=== PATIENT | female | born 1955 | race Caucasian/White ===

== ENCOUNTER 2023-02-10 14:52 | Inpatient (IN) | payer MEDICARE, MEDICAID, SELFPAY ==
[2023-02-10] VITALS (14 sets, daily range): BP systolic 138–163; BP diastolic 76–92; PULSE 83–128; RESP 18–32; TEMP 36.7–37.6; O2SAT 5–98; BMI 41.6; BMI 40.9
--- NOTE | 2023-02-10 15:00 | XR_ITS ---
The [address] [address] Patient Name: CELIA DALE MRN: [id number] date: 1955 Sex: F Assigned Patient Location: ER Current Patient Location: ER Accession/Order Number: [id number] Exam Date: 02/10/2023 15:38 Report Date: 02/10/2023 16:01 At the request of: JESSICA HUITRON Procedure: XR chest 1V EXAM: XR chest 1V TECHNIQUE: Single AP view chest HISTORY: Shortness of breath COMPARISON: None. FINDINGS: The heart is enlarged. There is pulmonary venous congestion. Diffuse increased interstitial markings. Osseous structures are intact. XR/XR chest 1V IMPRESSION: Findings suggest CHF and/or fluid overload. Electronically authenticated by: ALPESH CARBALLO Date: 02/10/2023 16:01
--- NOTE | 2023-02-10 15:01 | ECG_ITS ---
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
--- NOTE | 2023-02-10 15:03 | ED.GENADUL1 ---
HPI - General Adult General Chief complaint: Shortness of Breath/Dyspnea Stated complaint: GENERAL WEAKNESS Time Seen by Provider: 02/10/23 15:00 History of Present Illness HPI narrative: patient is a 67-year-old female who presents to the emergency department by ambulance from her home in [place] where she is a resident for the evaluation of shortness of breath and hypoxia. She was discharged from the hospital yesterday, she was not admitted at this facility. She is noted to be hypoxic on a nasal cannula on arrival. She does not complain of chest pain. EMS reported fever, DuoNeb was given with Solu-Medrol IV. She denies vomiting, peripheral edema. She has a history of chronic obstructive pulmonary disease. per the pharmacy list, patient filled albuterol, doxycycline and a prednisone taper yesterday. Related Data Home Medications Medication Instructions Recorded Confirmed albuterol sulfate 90 mcg/actuation 2 puff inhalation Q6H PRN 02/10/23 02/10/23 aerosol inhaler shortness of breath or wheezing amlodipine 5 mg tablet 5 mg PO .QD 02/10/23 02/10/23 atorvastatin 40 mg tablet 40 mg PO QPM 02/10/23 02/10/23 benzonatate 100 mg capsule 100 mg PO TID PRN cough 02/10/23 02/10/23 bupropion HCl 150 mg tablet,12 hr 150 mg PO Q12H 02/10/23 02/10/23 sustained-release carvedilol 25 mg tablet 25 mg PO Q12H 02/10/23 02/10/23 furosemide 20 mg tablet 20 mg PO .QD 02/10/23 02/10/23 pantoprazole 40 mg tablet,delayed 40 mg PO .ACB 02/10/23 02/10/23 release prednisone 10 mg tablet 10 mg PO .TAPER 02/10/23 02/10/23 Allergies Allergy/AdvReac Type Severity Reaction Status Date / Time morphine AdvReac Severe Vomiting Verified 02/10/23 15:09 Review of Systems ROS Constitutional Reports: fever; Denies: chills Ears, nose, mouth, and throat Denies: throat pain Cardiovascular Denies: chest pain Respiratory Reports: shortness of breath, cough and wheezing Gastrointestinal Denies: nausea or vomiting Genitourinary Denies: painful urination Musculoskeletal Denies: back pain Integumentary/Breast Denies: rash Endocrine Denies: excessive urination Hematologic/Lymphatic Denies: easy bruising PFSH PFSH Social History Smoking status: Former smoker Exam Narrative Exam Narrative: Gen.: Awake, alert, in no distress Head: Normocephalic, atraumatic ENT: Moist mucous membranes Respiratory: hypoxic, tachypnea noted, diffuse wheezing Cardio: Regular rate and rhythm Gastrointestinal: Abdomen is soft, nondistended and nontender to palpation Extremities: Moves extremities equally Psych: Normal mood and affect Neuro: No focal neuro deficit Skin: Warm, dry, intact Constitutional Vital Signs, click to edit/add: Last Vital Signs Temp 99.7 F 02/10/23 17:36 Pulse 100 H 02/10/23 17:49 Resp 18 02/10/23 17:36 BP 160/86 H 02/10/23 17:36 Pulse Ox 96 02/10/23 17:36 O2 Del Method Vapotherm 02/10/23 17:36 O2 Flow Rate 5 02/10/23 15:10 Course Vital Signs Vital signs: Vital Signs Pulse Rate 127 H 02/10/23 15:02 Respiratory Rate 29 H 02/10/23 15:02 Pulse Oximetry 85 L 02/10/23 15:02 Temperature 99.7 F 02/10/23 17:36 Pulse Rate 100 H 02/10/23 17:49 Respiratory Rate 18 02/10/23 17:36 Blood Pressure 160/86 H 02/10/23 17:36 Pulse Oximetry 96 02/10/23 17:36 Oxygen Delivery Method Vapotherm 02/10/23 17:36 Oxygen Delivery Flow Rate 5 02/10/23 15:10 Medical Decision Making MDM Narrative Medical decision making narrative: fluids were discontinued on this patient as she had an elevated BNP. She does have acute kidney injury, leukocytosis with bandemia. Chest x-ray does not show an infiltrate but does show congestive heart failure. Troponin is mildly elevated, likely a combination of acute kidney injury and elevated BNP. Patient will be treated for possible hospital-acquired infection with Zosyn and vancomycin, blood cultures are pending. She meets Sirs criteria with no source of infection at this time. Vapotherm was placed on arrival to the Emergency Room as the patient continued to be hypoxic on a nasal cannula she had improvement with Vapotherm. Tachycardia has improved some. Patient admitted to the hospitalist for further evaluation and treatment. Dr. Dunaway was made aware of the elevated troponin, patient has no EKG changes, no complaints of chest pain in the emergency department. He will order Bumex drip for diuresis. Sarah catheter was placed. Patient is improved, stable at time of admission. Medical Records Medical records reviewed: Yes I reviewed the patient's medical records Lab Data Lab results reviewed: Yes I reviewed the patient's lab results Labs: Lab Results 02/10/23 02/10/23 02/10/23 Range/Units 15:20 16:20 16:42 WBC 18.3 H (4.0-11.0) 10^3/uL RBC 3.59 L (4.20-5.40) 10^6/uL Hgb 12.1 (12.0-16.0) g/dL Hct 36.5 (36.0-48.0) % MCV 101.7 H (81.0-99.0) fL MCH 33.7 (26.7-34.0) pg MCHC 33.2 (29.9-35.2) g/dL RDW 12.8 (11.0-15.0) % Plt Count 277 (150-450) 10^3/uL MPV 9.6 (9.5-13.5) fL Seg Neuts % (Manual) 87.0 Band Neutrophils % 6.0 H (0-5) % Lymphocytes % (Manual) 2.0 L (20.5-60.0) % Monocytes % (Manual) 5.0 (1.7-12.0) % Eosinophils % (Manual) 0.0 L (0.9-7.0) % Basophils % (Manual) 0.0 L (0.2-2.0) % Neutrophils # (Manual) 15.92 H (1.4-6.5) 10^3/uL Band Neutrophils # 1.1 H (0.0-0.3) 10^3/uL Lymphocytes # (Manual) 0.36 L (1.20-3.80) 10^3/uL Monocytes # (Manual) 0.91 H (0.30-0.80) 10^3/uL Eosinophils # (Manual) 0.00 (0.00-0.70) 10^3/uL Basophils # (Manual) 0.00 (0.00-0.10) 10^3/uL PT 10.3 (9.0-11.6) sec INR 0.97 APTT 25.4 (22.3-36.2) sec VBG pH 7.348 (7.330-7.430) VBG pCO2 43.3 (40.0-52.0) mmHg Sodium 139 (136-145) mmol/L Potassium 3.7 (3.5-5.1) mmol/L Chloride 103 (98-107) mmol/L Carbon Dioxide 24.8 (21.0-32.0) mmol/L Anion Gap 14.9 BUN 36.0 H (7.0-18.0) mg/dL Creatinine 2.14 H (0.55-1.02) mg/dL Est GFR ( Amer) 28 L (>=60) Est GFR (Non-Af Amer) 23 L (>=60) BUN/Creatinine Ratio 16.8 Glucose 93 (74-106) mg/dL Lactate 1.4 (0.4-2.0) mmol/L Calcium 9.2 (8.5-10.1) mg/dL Total Bilirubin 0.4 (0.2-1.0) mg/dL AST 46 H (15-37) U/L ALT 33 (14-59) U/L Alkaline Phosphatase 71 (46-116) U/L Troponin I High Sens 71.7 H* (4.0-51.3) pg/mL NT-Pro-B Natriuret Pep 3405.0 H* (<=900.0) pg/mL Total Protein 7.2 (6.4-8.2) g/dL Albumin 2.9 L (3.4-5.0) g/dL Globulin 4.3 g/dL Albumin/Globulin Ratio 0.7 Urine Color Lt. yellow (YELLOW) Urine Clarity Clear (CLEAR) Urine pH 6.0 (5.0-9.0) Ur Specific [place] 1.010 (1.005-1.025) Urine Protein 100 A (NEG/TRACE) mg/dL Urine Glucose (UA) Negative (NEGATIVE) mg/dL Urine Ketones Negative (NEGATIVE) mg/dL Urine Occult Blood Trace-i (NEGATIVE) Urine Nitrite Negative (NEGATIVE) Urine Bilirubin Negative (NEGATIVE) Urine Urobilinogen 0.2 (0.2-1.0) EU/dL Ur Leukocyte Esterase Negative (NEGATIVE) Urine RBC 0-2 (0-2) #/HPF Urine WBC 0-2 A (NONE SEEN) #/HPF Ur Squamous Epith Cells Rare (NONE/RARE) #/LPF Urine Crystals Seen A (None Seen) #/HPF Amorphous Sediment Rare Urine Bacteria None seen (NONE SEEN) #/HPF Urine Casts None seen (NONE SEEN) #/LPF Urine Mucus None seen (NONE SEEN) Ur Culture Indicated? No SARS-CoV-2 (PCR) Positive A (NEGATIVE) Imaging Data Chest x-ray: Attestation: I have reviewed the pertinent imaging results. Radiologist's impression: Procedure: XR chest 1V EXAM: XR chest 1V TECHNIQUE: Single AP view chest HISTORY: Shortness of breath COMPARISON: None. FINDINGS: The heart is enlarged. There is pulmonary venous congestion. Diffuse increased interstitial markings. Osseous structures are intact. IMPRESSION: Findings suggest CHF and/or fluid overload. Electronically authenticated by: ALPESH CARBALLO Date: 02/10/2023 16:01 ECG Data Attestation: I personally reviewed and interpreted this ECG as follows: (sinus tachycardia at a rate of 126, artifact noted with no obvious acute ST elevation or ectopy. EKG reviewed by attending physician) Discharge Plan Discharge Chief Complaint: Shortness of Breath/Dyspnea Clinical Impression: Shortness of breath, Congestive heart failure, Leukocytosis, SIRS (systemic inflammatory response syndrome) Patient Disposition: Admitted As Inpatient Time of Disposition Decision: 16:22 Condition: Fair Discharge Date/Time: 02/10/23 17:25
--- NOTE | 2023-02-10 15:18 | PC.NURSE ---
Pulse ox. 77% on room air, oxygen applied at 3/LPM and pulse ox. up to 83%, oxygen increased to 5 LPM and pulse ox. up to 88%. RT in room at this time initiating vapotherm
[2023-02-10] MEDS: ALBUTEROL SULFATE 2.5 MG/3 ML VIAL NEB IH (15:19)
--- NOTE | 2023-02-10 15:21 | RESP.RT ---
Placed on Vapotherm 40L/55%
--- NOTE | 2023-02-10 15:22 | RESP.RT ---
Placed on Vapotherm 40L/55%
[2023-02-10] MEDS: 0.9 % SODIUM CHLORIDE 1,000 ML 1000 ML IV (15:30)
[2023-02-10 15:36] LABS: PCO2 VBG 43.3 mmHg (40.0-52.0); pH VBG 7.348 (7.330-7.430)
[2023-02-10 15:38] LABS: Hematocrit 36.5 % (36.0-48.0); Hemoglobin 12.1 g/dL (12.0-16.0); Mean Corpuscular HGB Conc 33.2 g/dL (29.9-35.2); Mean Corpuscular Hemoglobin 33.7 pg (26.7-34.0); Mean Corpuscular Volume 101.7 fL (81.0-99.0); Mean Platelet Volume 9.6 fL (9.5-13.5); Platelet Count 277 10^3/uL (150-450); Red Blood Count 3.59 10^6/uL (4.20-5.40); Red Cell Distribution Width 12.8 % (11.0-15.0); White Blood Count 18.3 10^3/uL (4.0-11.0)
[2023-02-10 15:50] LABS: Alanine Aminotransferase 33 U/L (14-59); Albumin Globulin Ratio 0.7; Albumin Level 2.9 g/dL (3.4-5.0); Alkaline Phosphatase 71 U/L (46-116); Anion Gap 14.9; Aspartate Amino Transferase 46 U/L (15-37); BUN Creatinine Ratio 16.8; Bilirubin Total 0.4 mg/dL (0.2-1.0); Calcium 9.2 mg/dL (8.5-10.1); Carbon Dioxide 24.8 mmol/L (21.0-32.0); Chloride 103 mmol/L (98-107); Estimated GFR (African America 28 (>=60); Estimated GFR (Non-African Ame 23 (>=60); Globulin 4.3 g/dL; Glucose 93 mg/dL (74-106); Potassium 3.7 mmol/L (3.5-5.1); Sodium 139 mmol/L (136-145); Total Protein 7.2 g/dL (6.4-8.2)
[2023-02-10 15:59] LABS: INR 0.97; Partial Thromboplastin Time 25.4 sec (22.3-36.2); Prothrombin Time 10.3 sec (9.0-11.6)
[2023-02-10 16:04] LABS: Troponin I High Sensitivity 71.7 pg/mL (4.0-51.3)
[2023-02-10 16:05] LABS: Band Neutrophils Absolute 1.1 10^3/uL (0.0-0.3); Lymphocytes Absolute Manual 0.36 10^3/uL (1.20-3.80); Monocytes Absolute Manual 0.91 10^3/uL (0.30-0.80); Segmented Neut Absolute Manual 15.92 10^3/uL (1.4-6.5)
[2023-02-10 16:31] LABS: Bilirubin Urine NEGATIVE (NEGATIVE); Blood Urine TRACE-I (NEGATIVE); Clarity Urine CLEAR (CLEAR); Color Urine LT. YELLOW (YELLOW); Glucose Urine UA NEGATIVE (NEGATIVE); Ketones Urine NEGATIVE (NEGATIVE); Leukocyte Esterase Urine NEGATIVE (NEGATIVE); Nitrite Urine NEGATIVE (NEGATIVE); Protein Urine 100 mg/dL (NEG/TRACE); Urobilinogen Urine 0.2 EU/dL (0.2-1.0)
[2023-02-10 16:34] LABS: Urine Microscopic Indicated YES
[2023-02-10] MEDS: PIPERACILLIN SODIUM/TAZOBACTAM 4.5 GM in 0.9 % SODIUM CHLORIDE 50 ML IV (16:35)
[2023-02-10 16:38] LABS: Amorphous Sediment Urine RARE; Bacteria Urine NONE SEEN #/HPF (NONE SEEN); Cast Seen? NONE SEEN #/LPF (NONE SEEN); Crystals Seen? Seen #/HPF (None Seen); Mucus Urine NONE SEEN (NONE SEEN); RBC Urine 0-2 #/HPF (0-2); Squamous Epithelial Cell Urine RARE #/LPF (NONE/RARE); Urine Culture Indicated NO; WBC Urine 0-2 #/HPF (NONE SEEN)
[2023-02-10 16:59] LABS: SARS-CoV-2 Ag POSITIVE (NEGATIVE)
[2023-02-10 17:17] LABS: Lactate/Lactic Acid 1.4 mmol/L (0.4-2.0)
[2023-02-10 18:39] LABS: Troponin I High Sensitivity 91.8 pg/mL (4.0-51.3)
[2023-02-10 18:42] LABS: Magnesium 1.8 mg/dL (1.8-2.4); Thyroid Stimulating Hormone 0.066 uIU/mL (0.358-3.740)
[2023-02-10 21:30] LABS: Troponin I High Sensitivity 89.5 pg/mL (4.0-51.3)
[2023-02-10] MEDS: REMDESIVIR 200 MG in 0.9 % SODIUM CHLORIDE 250 ML 250 MG IV (21:42)
[2023-02-10] MEDS: CETIRIZINE HCL 10 MG TABLET 20 MG PO (21:43)
[2023-02-10] MEDS: DEXAMETHASONE SOD PHOS 20 MG/5 ML VIAL 4 MG IV (21:44)
[2023-02-10] MEDS: CARVEDILOL 25 MG TABLET PO (21:44)
[2023-02-10] MEDS: BUPROPION HCL 150 MG SR TABLET 12H PO (21:44)
[2023-02-10] MEDS: BENZONATATE 100 MG CAPSULE 200 MG PO (21:44)
--- NOTE | 2023-02-10 22:44 | P.HP_ITS ---
H&P: HPI History of Present Illness Chief complaint: GENERAL WEAKNESS, CHF, Shortness of Breath, SIRS Narrative: Patient tolerated discharged from an outside facility for pneumonia. Presented to the emergency room. Here found to have acute combined congestive heart failure, COVID-19 was tested and she did test positive. Patient was transferred to medical surgical unit for definitive care Review of Systems ROS Status of ROS 10 or more systems reviewed and unremarkable except as noted in history and below Constitutional Denies: fever or chills Cardiovascular Reports: chest pain Respiratory Reports: shortness of breath and cough Gastrointestinal Reports: nausea PFSH PFSH Medical History (Updated 02/10/23 @ 18:50 by Jamee Bro RN) Chronic kidney disease, stage 4 (severe) ?N18.4 - Chronic kidney disease, stage 4 (severe) (ICD-10) COPD (chronic obstructive pulmonary disease) ?J44.9 - Chronic obstructive pulmonary disease, unspecified (ICD-10) Hypercholesteremia ?E78.00 - Pure hypercholesterolemia, unspecified (ICD-10) Hypertension ?I10 - Essential (primary) hypertension (ICD-10) Mantle cell lymphoma ?C83.10 - Mantle cell lymphoma, unspecified site (ICD-10) Social History Smoking status: Former smoker Meds Home Medications and Allergies Home Medications Medication Instructions Recorded Confirmed Type albuterol sulfate 90 mcg/actuation 2 puff inhalation Q6H PRN 02/10/23 02/10/23 History aerosol inhaler shortness of breath or wheezing amlodipine 5 mg tablet 5 mg PO .QD 02/10/23 02/10/23 History atorvastatin 40 mg tablet 40 mg PO QPM 02/10/23 02/10/23 History benzonatate 100 mg capsule 100 mg PO TID PRN cough 02/10/23 02/10/23 History bupropion HCl 150 mg tablet,12 hr 150 mg PO Q12H 02/10/23 02/10/23 History sustained-release carvedilol 25 mg tablet 25 mg PO Q12H 02/10/23 02/10/23 History furosemide 20 mg tablet 20 mg PO .QD 02/10/23 02/10/23 History pantoprazole 40 mg tablet,delayed 40 mg PO .ACB 02/10/23 02/10/23 History release prednisone 10 mg tablet 10 mg PO .TAPER 02/10/23 02/10/23 History Allergies Allergy/AdvReac Type Severity Reaction Status Date / Time morphine AdvReac Severe Vomiting Verified 02/10/23 15:09 Exam Constitutional Vital Signs, click to edit/add: Last Vital Signs Temp 98.0 F 02/10/23 22:32 Pulse 90 02/10/23 22:32 Resp 20 02/10/23 22:32 BP 139/76 02/10/23 22:32 Pulse Ox 95 02/10/23 22:32 O2 Del Method High Flow Nasal Cannula 02/10/23 22:32 O2 Flow Rate 40 02/10/23 22:32 FiO2 55 02/10/23 22:32 Documenting provider has reviewed patient's vital signs: yes Common normals: apparent distress HENMT Common normals: normocephalic Chest Common normals: inspection of chest normal Respiratory Common normals: no retractions and no use of accessory muscles; abnormal respiratory effort Effort & inspection: not able to speak in complete sentences Auscultation: rales and rhonchi Cardio Common normals: regular rate, regular rhythm and no murmurs GI Common normals: negative for Normal to inspection, nondistended, normoactive bowel sounds present (Obese) Results Labs Labs: Short CBC 02/10/23 Range/Units 15:20 WBC 18.3 H (4.0-11.0) 10^3/uL Hgb 12.1 (12.0-16.0) g/dL Hct 36.5 (36.0-48.0) % Plt Count 277 (150-450) 10^3/uL BMP 02/10/23 15:20 Sodium 139 Potassium 3.7 Chloride 103 Carbon Dioxide 24.8 BUN 36.0 H Creatinine 2.14 H Glucose 93 Calcium 9.2 Liver Function 02/10/23 Range/Units 15:20 Total Bilirubin 0.4 (0.2-1.0) mg/dL AST 46 H (15-37) U/L ALT 33 (14-59) U/L Alkaline Phosphatase 71 (46-116) U/L Albumin 2.9 L (3.4-5.0) g/dL Urine 02/10/23 Range/Units 16:20 Urine Color Lt. yellow (YELLOW) Urine Clarity Clear (CLEAR) Urine pH 6.0 (5.0-9.0) Ur Specific [place] 1.010 (1.005-1.025) Urine Protein 100 A (NEG/TRACE) mg/dL Urine Glucose (UA) Negative (NEGATIVE) mg/dL ABG ABG results: 02/10/23 15:20 VBG pH 7.348 VBG pCO2 43.3 Assessment and Plan Assessment and Plan (1) Shortness of breath: (2) Congestive heart failure: (3) Leukocytosis: (4) SIRS (systemic inflammatory response syndrome): Plan Respiratory distress, tachycardia, leukocytosis-acute hypoxic respiratory failure secondary to acute COVID-19 complicated by acute combined congestive heart failure-patient requiring high flow supplemental oxygen of Vapotherm. Oxygen saturations are improved with that. Tried obtain sputum culture-this is all into sepsis with multisystem organ dysfunction-renal, respiratory, heme, cardiac. Acute [id number] pneumonia bilateral-we will start inpatient treatment with inhalers, steroids, remdesivir. Acute combined congestive heart failure-secondary to complications of COVID-19 with elevated high-sensitivity troponin as well as treatment outside facility for dehydration and pneumonia. Patient not tested for COVID-19 at outside facility. Outside facility will be notified of exposure Depression-continue with home medications GERD-continue with home medications Morbid obesity-diet management
[2023-02-10] MEDS: POTASSIUM CHLORIDE 10 MEQ ER TABLET PO (22:51)
[2023-02-10] MEDS: BUMETANIDE 10 MG in 0.9 % SODIUM CHLORIDE 160 ML 20 MG IV (22:53)
[2023-02-10] MEDS: CLINDAMYCIN PHOSPHATE/D5W 600 MG/50 ML PIGGYBACK 100 MG IV (22:55)
[2023-02-10] MEDS: IPRATROPIUM/ALBUTEROL SULFATE 3 ML AMPUL.NEB IH (23:04)
[2023-02-10] MEDS: PIPERACILLIN SODIUM/TAZOBACTAM 3.375 GM in 0.9 % SODIUM CHLORIDE 50 ML IV (23:27)
[2023-02-11] VITALS (22 sets, daily range): BP systolic 144–158; BP diastolic 75–93; PULSE 67–92; RESP 18–20; TEMP 36.3–36.8; O2SAT 90–96
--- NOTE | 2023-02-11 00:03 | RESP.RT ---
Titrated to 50%
--- NOTE | 2023-02-11 00:05 | RESP.RT ---
Titrated to 50%
[2023-02-11] MEDS: BENZONATATE 100 MG CAPSULE 200 MG PO ×3 (02:12→18:19)
[2023-02-11] MEDS: CLINDAMYCIN PHOSPHATE/D5W 600 MG/50 ML PIGGYBACK 100 MG IV ×4 (02:12→20:03)
[2023-02-11] MEDS: DEXAMETHASONE SOD PHOS 20 MG/5 ML VIAL 4 MG IV ×4 (02:13→20:04)
[2023-02-11] MEDS: IPRATROPIUM/ALBUTEROL SULFATE 3 ML AMPUL.NEB IH ×4 (04:28→20:06)
[2023-02-11 05:15] LABS: Hematocrit 32.4 % (36.0-48.0); Hemoglobin 10.7 g/dL (12.0-16.0); Mean Platelet Volume 9.1 fL (9.5-13.5); Platelet Count 191 10^3/uL (150-450); Red Blood Count 3.24 10^6/uL (4.20-5.40); White Blood Count 11.9 10^3/uL (4.0-11.0)
[2023-02-11 05:49] LABS: Alanine Aminotransferase 29 U/L (14-59); Albumin Globulin Ratio 0.6; Albumin Level 2.4 g/dL (3.4-5.0); Alkaline Phosphatase 59 U/L (46-116); Anion Gap 14.7; Aspartate Amino Transferase 41 U/L (15-37); Bilirubin Total 0.3 mg/dL (0.2-1.0); Calcium 8.4 mg/dL (8.5-10.1); Carbon Dioxide 23.6 mmol/L (21.0-32.0); Chloride 99 mmol/L (98-107); Estimated GFR (African America 28 (>=60); Estimated GFR (Non-African Ame 23 (>=60); Globulin 3.9 g/dL; Glucose 186 mg/dL (74-106); Potassium 3.3 mmol/L (3.5-5.1); Sodium 134 mmol/L (136-145); Total Protein 6.3 g/dL (6.4-8.2)
[2023-02-11 06:01] LABS: Troponin I High Sensitivity 55.4 pg/mL (4.0-51.3)
[2023-02-11] MEDS: OMEPRAZOLE 40 MG CAPSULE.DR PO (06:11)
[2023-02-11] MEDS: POTASSIUM CHLORIDE 10 MEQ ER TABLET PO (06:11)
[2023-02-11] MEDS: PIPERACILLIN SODIUM/TAZOBACTAM 3.375 GM in 0.9 % SODIUM CHLORIDE 50 ML IV ×3 (06:57→22:23)
--- NOTE | 2023-02-11 07:30 | P.PN_ITS ---
Progress Note: Subjective Subjective Interval history: Patient does state her breathing is slightly better than previous day. She had to have good urine output with Bumex drip Exam Constitutional Vital Signs, click to edit/add: Last Vital Signs Temp 98.3 F 02/12/23 08:16 Pulse 76 02/12/23 11:50 Resp 18 02/12/23 08:16 BP 147/91 H 02/12/23 08:16 Pulse Ox 94 L 02/12/23 11:50 O2 Del Method Nasal Cannula 02/12/23 11:18 O2 Flow Rate 4 02/12/23 11:18 FiO2 50 02/11/23 07:26 Documenting provider has reviewed patient's vital signs: yes Common normals: apparent distress HENMT Common normals: normocephalic Chest Common normals: inspection of chest normal Respiratory Common normals: no retractions and no use of accessory muscles; abnormal respiratory effort Effort & inspection: not able to speak in complete sentences Auscultation: rales and rhonchi Cardio Common normals: regular rate, regular rhythm and no murmurs GI Common normals: negative for Normal to inspection, nondistended, normoactive bowel sounds present (Obese) Progress Note: Objective Labs Labs: Short CBC 02/12/23 Range/Units 05:06 WBC 13.5 H (4.0-11.0) 10^3/uL Hgb 12.0 (12.0-16.0) g/dL Hct 35.8 L (36.0-48.0) % Plt Count 220 (150-450) 10^3/uL BMP 02/12/23 05:06 Sodium 135 L Potassium 3.3 L Chloride 96 L Carbon Dioxide 30.3 BUN 55.0 H Creatinine 2.34 H Glucose 121 H Calcium 8.4 L Liver Function 02/12/23 Range/Units 05:06 Total Bilirubin 0.5 (0.2-1.0) mg/dL AST 43 H (15-37) U/L ALT 39 (14-59) U/L Alkaline Phosphatase 68 (46-116) U/L Albumin 2.6 L (3.4-5.0) g/dL Progress Note: A&P Assessment and Plan (1) Shortness of breath: (2) Congestive heart failure: (3) Leukocytosis: (4) SIRS (systemic inflammatory response syndrome): Plan Respiratory distress, tachycardia, uncontrolled htn leukocytosis-acute hypoxic respiratory failure secondary to acute COVID-19 complicated by acute combined congestive heart failure-this is all into sepsis with multisystem organ dysfunction-renal, respiratory, heme, cardiac. -Patient is on vapo therm -we will try to wean to nasal cannula today. O2 saturations 88 to 92% would be fine given COVID-19 pneumonia. Acute OARVT-05-pped pneumonia bilateral-we will start inpatient treatment with inhalers, steroids, remdesivir.-Maintain current medications Acute combined congestive heart failure-secondary to complications of COVID-19 with elevated high-sensitivity troponin as well as treatment outside facility for dehydration and pneumonia. Patient not tested for COVID-19 at outside facility. Outside facility will be notified of exposure-did well with initial Bumex drip. We will repeat that today. - down 3 L today Hyponatremia - due to the above - cont to monitor CKD-3 - stabel eunice herrera drip Hyperglycemia =- monitor Hypokalemia due to the above - supplement Depression-continue with home medications GERD-continue with home medications Morbid obesity-diet management
--- NOTE | 2023-02-11 07:34 | PC.NURSE ---
Patient oxygen saturation on high flow NC 40 L; 50% was mid 90s throughout the night. Patient was switched over to 4 L/min nasal canula per physician's orders. Her oxygen saturation is now 92%. She states she is not short of breath or having any difficulty breathing. She is currently resting in bed with call light in reach.
[2023-02-11 08:36] LABS: Red Cell Distribution Width 12.7 % (11.0-15.0)
--- NOTE | 2023-02-11 09:04 | CM.NOTE ---
Rounds made with Dr. Dunaway, no discharge for pt today. SW and Case Management will follow for discharge needs.
[2023-02-11] MEDS: CETIRIZINE HCL 10 MG TABLET 20 MG PO (09:09)
[2023-02-11] MEDS: AMLODIPINE BESYLATE 5 MG TABLET PO (09:09)
[2023-02-11] MEDS: CARVEDILOL 25 MG TABLET PO ×2 (09:10→20:04)
[2023-02-11] MEDS: BUPROPION HCL 150 MG SR TABLET 12H PO ×2 (09:10→20:03)
[2023-02-11 10:43] LABS: Band Neutrophils Absolute 1.3 10^3/uL (0.0-0.3); Lymphocytes Absolute Manual 0.11 10^3/uL (1.20-3.80); Monocytes Absolute Manual 0.59 10^3/uL (0.30-0.80); Segmented Neut Absolute Manual 9.87 10^3/uL (1.4-6.5)
[2023-02-11] MEDS: POTASSIUM CHLORIDE 10 MEQ ER TABLET 20 MEQ PO ×3 (11:17→20:03)
[2023-02-11] MEDS: BUMETANIDE 10 MG in 0.9 % SODIUM CHLORIDE 160 ML 20 MG IV (11:19)
--- NOTE | 2023-02-11 12:36 | SWNOTE1 ---
SW met with pt to discuss dc needs. Pt lives at home by herself, her daughter lives across the street. Pt does use a cane at home, thinking of getting a rollator as it was recommended by therapy. SW to assist if pt does need. Pt's family assists with meals, grocery shopping, laundry, etc. Pt voices she does fairly well at home on her own, but her legs gave out yesterday at home and she was just weight. FIORDALIZA spoke with her about the possibility of home health or needing a short term rehab stay. SW explained what HH was and also was going to rehab entailed. SW let her know since she is covid positive she would have limited options on who takes covid. As of now it is only [facility]. At this time pt is hopeful to go home with home health versus rehab. FIORDALIZA asked to call family to see if they were in agreement. Pt is alright with SW calling her daughter. FIORDALIZA called and spoke with daughter. SW explained to her what therapy recommendations were and the difference between HH and going to rehab. Pt's daughter stated if she does not progress with therapy, they are open to her going skilled. She would like to see how she does and go from there. At this time pt and family alright with setting up home health. Pt's daughter is on her way here. FIORDALIZA left a home health list from [employer] in room for pt. She will review and SW to call back this afternoon.
--- NOTE | 2023-02-11 13:57 | SWNOTE1 ---
SW called and spoke with daughter and she is waiting for call back from uncle to see what HH company to use.
--- NOTE | 2023-02-11 15:01 | SWNOTE1 ---
SW spoke with daughter and she would like to use [facility] as her grandfather used them. SW sent referral.
--- NOTE | 2023-02-11 15:49 | SWNOTE1 ---
SW called [facility] and they are able to accept. FIORDALIZA left packet for nursing on floor in case of discharge over the weekend.
[2023-02-11] MEDS: REMDESIVIR 100 MG in 0.9 % SODIUM CHLORIDE 100 ML 200 MG IV (18:18)
[2023-02-12] VITALS (21 sets, daily range): BP systolic 126–158; BP diastolic 68–97; PULSE 64–84; RESP 18–20; TEMP 36.4–36.9; O2SAT 89–94
[2023-02-12] MEDS: CLINDAMYCIN PHOSPHATE/D5W 600 MG/50 ML PIGGYBACK 100 MG IV ×4 (00:03→18:41)
[2023-02-12] MEDS: BENZONATATE 100 MG CAPSULE 200 MG PO ×3 (01:04→17:09)
[2023-02-12] MEDS: DEXAMETHASONE SOD PHOS 20 MG/5 ML VIAL 4 MG IV ×4 (01:05→20:36)
[2023-02-12] MEDS: IPRATROPIUM/ALBUTEROL SULFATE 3 ML AMPUL.NEB IH ×4 (04:43→21:30)
[2023-02-12] MEDS: OMEPRAZOLE 40 MG CAPSULE.DR PO (05:03)
[2023-02-12] MEDS: POTASSIUM CHLORIDE 10 MEQ ER TABLET 20 MEQ PO ×4 (05:03→20:35)
[2023-02-12 05:29] LABS: Hematocrit 35.8 % (36.0-48.0); Mean Corpuscular HGB Conc 33.5 g/dL (29.9-35.2); Mean Corpuscular Hemoglobin 33.2 pg (26.7-34.0); Mean Corpuscular Volume 99.2 fL (81.0-99.0); Platelet Count 220 10^3/uL (150-450); Red Blood Count 3.61 10^6/uL (4.20-5.40); Red Cell Distribution Width 12.4 % (11.0-15.0); White Blood Count 13.5 10^3/uL (4.0-11.0)
[2023-02-12 05:58] LABS: Alanine Aminotransferase 39 U/L (14-59); Albumin Globulin Ratio 0.6; Albumin Level 2.6 g/dL (3.4-5.0); Alkaline Phosphatase 68 U/L (46-116); Aspartate Amino Transferase 43 U/L (15-37); BUN Creatinine Ratio 23.5; Bilirubin Total 0.5 mg/dL (0.2-1.0); Calcium 8.4 mg/dL (8.5-10.1); Carbon Dioxide 30.3 mmol/L (21.0-32.0); Chloride 96 mmol/L (98-107); Estimated GFR (African America 25 (>=60); Estimated GFR (Non-African Ame 21 (>=60); Globulin 4.4 g/dL; Glucose 121 mg/dL (74-106); Magnesium 1.7 mg/dL (1.8-2.4); Potassium 3.3 mmol/L (3.5-5.1); Sodium 135 mmol/L (136-145); Troponin I High Sensitivity 26.9 pg/mL (4.0-51.3)
[2023-02-12] MEDS: PIPERACILLIN SODIUM/TAZOBACTAM 3.375 GM in 0.9 % SODIUM CHLORIDE 50 ML IV ×3 (06:08→22:00)
[2023-02-12 06:15] LABS: Lymphocytes Absolute Manual 1.48 10^3/uL (1.20-3.80); Monocytes Absolute Manual 0.81 10^3/uL (0.30-0.80); Myelocytes Absolute Manual 0.13; Segmented Neut Absolute Manual 11.07 10^3/uL (1.4-6.5)
[2023-02-12] MEDS: BUPROPION HCL 150 MG SR TABLET 12H PO ×2 (08:45→20:35)
[2023-02-12] MEDS: CARVEDILOL 25 MG TABLET PO ×3 (08:45→20:35)
[2023-02-12] MEDS: AMLODIPINE BESYLATE 5 MG TABLET PO (08:45)
[2023-02-12] MEDS: CETIRIZINE HCL 10 MG TABLET 20 MG PO (08:45)
--- NOTE | 2023-02-12 11:16 | PT.DAILY ---
Physical Therapy Daily Note PT Daily Note/Assess Start: 02/12/23 11:09 Freq: Status: Active Protocol: Document 02/12/23 10:30 GHADA (Rec: 02/12/23 11:16 GHADA [id number]) Physical Therapy Daily Note/Assessment Time In/Time Out Time In 10:30 Time Out 10:55 Pain In Pain N/A Pain Out Pain N/A Subjective Subjective Reports mild soreness in ribs and thoracic spine due to coughing, but does not rate. Reports feeling better. Up in chair at start of RX. Therapeutic Exercise Time Therapeutic Exercise Minutes (minutes) 10 Therapeutic Exercise Units 1 Therapeutic Exercise Treatment Therapeutic Exercise Treatment Seated exercises with AROM in all planes 10 reps with rest breaks as needed. SPO2 at 88 percent with patient on O2. Therapeutic Activity Time Therapeutic Activity Minutes (minutes) 15 Therapeutic Activity Units 1 Therapeutic Activity Treatment Chair Transfer Ability Minimum Assist Therapeutic Activity Comments Patient just up in chair with nursing. Sit to stand from chair with SC min assist. Patient stands for 1 min with SC with SPO2 at 92 percent. Attempted to take two steps with SC with mod assist due to poor balance from weakness; patient returns to seated position in chair. Sit to stand from chair at RW with CGA/Min assist. Gait 5 ft. fwd ./5 ft. retro with CGA. SPO2 to 84 percent so seated rested break with cues for correct breathing. SPO2 back to 89 percent after 3 min rest. Total Physical Therapy Time Total Therapy Minutes 25 Total Physical Therapy Units 2 Summary Daily Note Summary Patient demonstrate improved ability with transfers and gait this date. 1st attempted gait with SC, but this was unsafe due to weakness and poor balance, so initiated use of RW. Patient demonstrate improved ability with RW vs SC today. SPO2 does decreased after 10 ft. of ambulation but increased with rest break and breathing techniques. Patient was in chair with call light in reach post RX.
--- NOTE | 2023-02-12 12:01 | P.PN_ITS ---
Progress Note: Subjective Subjective Interval history: Patient looks more comfortable with her breathing today. Exam Constitutional Vital Signs, click to edit/add: Last Vital Signs Temp 98.3 F 02/12/23 08:16 Pulse 76 02/12/23 11:50 Resp 18 02/12/23 08:16 BP 147/91 H 02/12/23 08:16 Pulse Ox 94 L 02/12/23 11:50 O2 Del Method Nasal Cannula 02/12/23 11:18 O2 Flow Rate 4 02/12/23 11:18 FiO2 50 02/11/23 07:26 Documenting provider has reviewed patient's vital signs: yes Common normals: apparent distress HENMT Common normals: normocephalic Chest Common normals: inspection of chest normal Respiratory Common normals: normal respiratory effort, no retractions and no use of accessory muscles Effort & inspection: able to speak in complete sentences Auscultation: rales (Improved) and rhonchi (Improved) Cardio Common normals: regular rate, regular rhythm and no murmurs GI Common normals: negative for Normal to inspection, nondistended, normoactive bowel sounds present (Obese) Progress Note: Objective Labs Labs: Short CBC 02/12/23 Range/Units 05:06 WBC 13.5 H (4.0-11.0) 10^3/uL Hgb 12.0 (12.0-16.0) g/dL Hct 35.8 L (36.0-48.0) % Plt Count 220 (150-450) 10^3/uL BMP 02/12/23 05:06 Sodium 135 L Potassium 3.3 L Chloride 96 L Carbon Dioxide 30.3 BUN 55.0 H Creatinine 2.34 H Glucose 121 H Calcium 8.4 L Liver Function 02/12/23 Range/Units 05:06 Total Bilirubin 0.5 (0.2-1.0) mg/dL AST 43 H (15-37) U/L ALT 39 (14-59) U/L Alkaline Phosphatase 68 (46-116) U/L Albumin 2.6 L (3.4-5.0) g/dL Progress Note: A&P Assessment and Plan (1) Congestive heart failure: (2) Leukocytosis: (3) SIRS (systemic inflammatory response syndrome): (4) Shortness of breath: (5) Hypertension: Plan Respiratory distress, tachycardia, Bandemia, uncontrolled htn leukocytosis-acute hypoxic respiratory failure secondary to acute COVID-19 complicated by acute combined congestive heart failure-this is all led to sepsis with multisystem organ dysfunction-renal, respiratory, heme, cardiac. -Patient able to be weaned to nasal cannula oxygen, initially on 5 L and is down to 4 L this morning. Continue with current treatment plan Acute [id number]-cdvi pneumonia bilateral-we will start inpatient treatment with inhalers, steroids, remdesivir.-Maintain current medications-bandemia has resolved today Acute combined congestive heart failure-secondary to complications of COVID-19 with elevated high-sensitivity troponin as well as treatment outside facility for dehydration and pneumonia. -Has had good diuresis from the Bumex drip on 2 occasions. We will change patient to just IV Lasix today.-BNP is improved, HST is improved Hyponatremia - due to the above - cont to monitor-improved CKD-3 -elevated somewhat today. Continue to monitor Hyperglycemia =- monitor Iron deficiency anemia-monitor daily-improved today Hypokalemia due to the above - supplement-stable today but will increase supplementation Acute diarrhea-likely secondary to the above-we will check stool for C. difficile Hypomagnesemia likely secondary to the diuresis-supplement Depression-continue with home medications GERD-continue with home medications Morbid obesity-diet management
[2023-02-12 12:04] LABS: Adenovirus F 40/41 NOT DETECTED (NOT DETECTE); Astrovirus NOT DETECTED (NOT DETECTE); Campylobacter NOT DETECTED (NOT DETECTE); Cryptosporidium NOT DETECTED (NOT DETECTE); Cyclospora cayetanensis NOT DETECTED (NOT DETECTE); Entamoeba histolytica NOT DETECTED (NOT DETECTE); Enteroaggregative E.coli NOT DETECTED (NOT DETECTE); Enteropathogenic E.coli NOT DETECTED (NOT DETECTE); Enterotoxigenic E. coli NOT DETECTED (NOT DETECTE); Giardia lamblia NOT DETECTED (NOT DETECTE); Norovirus GI/GII NOT DETECTED (NOT DETECTE); Plesiomonas shigelloides NOT DETECTED (NOT DETECTE); Rotavirus A NOT DETECTED (NOT DETECTE); Salmonella NOT DETECTED (NOT DETECTE); Sapovirus NOT DETECTED (NOT DETECTE); Shiga-like toxin-producing E.C NOT DETECTED (NOT DETECTE); Shigella/Enteroinvasive E.coli NOT DETECTED (NOT DETECTE); Vibrio NOT DETECTED (NOT DETECTE); Vibrio cholerae NOT DETECTED (NOT DETECTE); Yersinia enterocolitica NOT DETECTED (NOT DETECTE)
[2023-02-12] MEDS: FUROSEMIDE 40 MG/4 ML VIAL IVP (13:22)
[2023-02-12] MEDS: MAGNESIUM OXIDE 400 MG TABLET PO ×2 (13:28→20:35)
[2023-02-12] MEDS: PROSTAT 15 GM PROTEIN/100 CAL 30 ML LIQUID PACKET PO ×2 (13:28→20:35)
[2023-02-12 16:09] LABS: Procalcitonin 2.42 ng/mL (0.00-0.08)
[2023-02-12] MEDS: REMDESIVIR 100 MG in 0.9 % SODIUM CHLORIDE 100 ML 200 MG IV (18:19)
[2023-02-13] VITALS (25 sets, daily range): BP systolic 133–151; BP diastolic 84–93; PULSE 69–96; RESP 16–20; TEMP 36.3–36.4; O2SAT 88–96
[2023-02-13] MEDS: CLINDAMYCIN PHOSPHATE/D5W 600 MG/50 ML PIGGYBACK 100 MG IV ×4 (00:58→18:16)
[2023-02-13] MEDS: BENZONATATE 100 MG CAPSULE 200 MG PO ×3 (01:02→17:02)
[2023-02-13] MEDS: DEXAMETHASONE SOD PHOS 20 MG/5 ML VIAL 4 MG IV ×4 (01:02→20:09)
[2023-02-13] MEDS: IPRATROPIUM/ALBUTEROL SULFATE 3 ML AMPUL.NEB IH ×4 (04:59→21:17)
[2023-02-13] MEDS: CARVEDILOL 25 MG TABLET PO ×3 (05:01→21:32)
[2023-02-13] MEDS: OMEPRAZOLE 40 MG CAPSULE.DR PO (05:02)
[2023-02-13 06:03] LABS: Hematocrit 37.4 % (36.0-48.0); Hemoglobin 12.5 g/dL (12.0-16.0); Mean Corpuscular HGB Conc 33.4 g/dL (29.9-35.2); Mean Corpuscular Hemoglobin 32.9 pg (26.7-34.0); Mean Corpuscular Volume 98.4 fL (81.0-99.0); Platelet Count 206 10^3/uL (150-450); Red Cell Distribution Width 12.6 % (11.0-15.0); White Blood Count 12.1 10^3/uL (4.0-11.0)
[2023-02-13] MEDS: PIPERACILLIN SODIUM/TAZOBACTAM 3.375 GM in 0.9 % SODIUM CHLORIDE 50 ML IV ×3 (06:24→23:19)
[2023-02-13 06:40] LABS: Alanine Aminotransferase 37 U/L (14-59); Albumin Level 2.6 g/dL (3.4-5.0); Alkaline Phosphatase 61 U/L (46-116); Anion Gap 15.6; Aspartate Amino Transferase 30 U/L (15-37); BUN Creatinine Ratio 31.6; Bilirubin Total 0.4 mg/dL (0.2-1.0); Calcium 8.1 mg/dL (8.5-10.1); Carbon Dioxide 26.9 mmol/L (21.0-32.0); Chloride 99 mmol/L (98-107); Estimated GFR (African America 26 (>=60); Estimated GFR (Non-African Ame 22 (>=60); Glucose 109 mg/dL (74-106); Magnesium 1.8 mg/dL (1.8-2.4); Potassium 3.5 mmol/L (3.5-5.1); Sodium 138 mmol/L (136-145); Total Protein 6.6 g/dL (6.4-8.2); Troponin I High Sensitivity 17.5 pg/mL (4.0-51.3)
[2023-02-13 06:50] LABS: Albumin Globulin Ratio 0.7
[2023-02-13 07:45] LABS: Band Neutrophils Absolute 0.2 10^3/uL (0.0-0.3); Monocytes Absolute Manual 0.48 10^3/uL (0.30-0.80); Segmented Neut Absolute Manual 10.76 10^3/uL (1.4-6.5)
[2023-02-13] MEDS: PROSTAT 15 GM PROTEIN/100 CAL 30 ML LIQUID PACKET PO (09:02)
[2023-02-13] MEDS: BUPROPION HCL 150 MG SR TABLET 12H PO ×2 (09:02→21:32)
[2023-02-13] MEDS: POTASSIUM CHLORIDE 10 MEQ ER TABLET 20 MEQ PO ×4 (09:02→21:32)
[2023-02-13] MEDS: MAGNESIUM OXIDE 400 MG TABLET PO ×2 (09:02→21:32)
[2023-02-13] MEDS: AMLODIPINE BESYLATE 5 MG TABLET PO (09:02)
[2023-02-13] MEDS: CETIRIZINE HCL 10 MG TABLET 20 MG PO (10:05)
--- NOTE | 2023-02-13 11:08 | P.PN_ITS ---
Progress Note: Subjective Subjective Interval history: Patient sleeping but awakens easily. Likely her breathing again continues to be better. Exam Constitutional Vital Signs, click to edit/add: Last Vital Signs Temp 97.5 F L 02/13/23 07:54 Pulse 88 02/13/23 09:57 Resp 16 02/13/23 07:55 BP 148/93 H 02/13/23 07:54 Pulse Ox 95 02/13/23 10:35 O2 Del Method Nasal Cannula 02/13/23 10:35 O2 Flow Rate 3 02/13/23 10:35 FiO2 50 02/11/23 07:26 Documenting provider has reviewed patient's vital signs: yes Common normals: apparent distress HENMT Common normals: normocephalic Chest Common normals: inspection of chest normal Respiratory Common normals: normal respiratory effort, no retractions and no use of accessory muscles Effort & inspection: able to speak in complete sentences Auscultation: rhonchi (Continues to improve. Diffuse pattern consistent with COVID 19) Cardio Common normals: regular rate, regular rhythm and no murmurs GI Common normals: negative for Normal to inspection, nondistended, normoactive bowel sounds present (Obese) Extremity General: no edema Progress Note: Objective Labs Labs: Short CBC 02/13/23 Range/Units 05:34 WBC 12.1 H (4.0-11.0) 10^3/uL Hgb 12.5 (12.0-16.0) g/dL Hct 37.4 (36.0-48.0) % Plt Count 206 (150-450) 10^3/uL BMP 02/13/23 05:34 Sodium 138 Potassium 3.5 Chloride 99 Carbon Dioxide 26.9 BUN 71.0 H Creatinine 2.25 H Glucose 109 H Calcium 8.1 L Liver Function 02/13/23 Range/Units 05:34 Total Bilirubin 0.4 (0.2-1.0) mg/dL AST 30 (15-37) U/L ALT 37 (14-59) U/L Alkaline Phosphatase 61 (46-116) U/L Albumin 2.6 L (3.4-5.0) g/dL Progress Note: A&P Assessment and Plan (1) Congestive heart failure: (2) Leukocytosis: (3) SIRS (systemic inflammatory response syndrome): (4) Shortness of breath: (5) Hypertension: Plan Respiratory distress, tachycardia, Bandemia, uncontrolled htn, leukocytosis- acute hypoxic respiratory failure secondary to acute COVID-19 complicated by acute combined congestive heart failure-this is all led to sepsis with multisystem organ dysfunction-renal, respiratory, heme, cardiac. Bandemia has resolved, acute combined congestive heart failure is improved, edema has resolved, lungs are improving, patient down to 3 L Acute OJKSO-11-ebrs pneumonia bilateral-we started inpatient treatment with inhalers, steroids, remdesivir.-Maintain current medications-bandemia has resolved today-lung panel still consistent with COVID-19. Sputum culture with epithelial cells so possible contaminant, final culture pending Acute combined congestive heart failure-secondary to complications of COVID-19 with elevated high-sensitivity troponin as well as treatment outside facility for dehydration and pneumonia. Good diuresis. We will change patient to his oral Lasix today. Held off on echocardiogram due to this being COVID-19 r elated. Would be good to get the ultrasound once recovered from COVID-19 Hypertension-improved overall but not perfect. We will continue to monitor closely. Hold off on increasing Norvasc with concerns over bradycardia in combination with beta-linda as well as increasing peripheral edema and somewhat over 60 years of age and obesity Hyponatremia - due to the above - cont to monitor-resolved today CKD-3 -somewhat improved from previous day. Suspect will improve with changing to oral Lasix Hyperglycemia =- monitor Iron deficiency anemia-monitor daily-improved today Hypokalemia due to the above - supplement-normal today Acute diarrhea-likely secondary to the above-stool test were negative for C. difficile Hypomagnesemia likely secondary to the diuresis-supplement Depression-continue with home medications GERD-continue with home medications Morbid obesity-diet management
--- NOTE | 2023-02-13 11:38 | PT.DAILY ---
Physical Therapy Daily Note PT Daily Note/Assess Start: 02/12/23 11:09 Freq: Status: Active Protocol: Document 02/13/23 11:00 GHADA (Rec: 02/13/23 11:37 GHADA [id number]) Physical Therapy Daily Note/Assessment Time In/Time Out Time In 11:00 Time Out 11:23 Subjective Subjective Tired, been up and down to commode all morning, every time I cough I poop. Therapeutic Exercise Time Therapeutic Exercise Minutes (minutes) 13 Therapeutic Exercise Units 1 Therapeutic Exercise Treatment Therapeutic Exercise Treatment Exercises completed in both supine and seated position this date 10-15 reps each with SPO2 maintaining at 89 percent on 3 LO2 Therapeutic Activity Time Therapeutic Activity Minutes (minutes) 10 Therapeutic Activity Units 1 Therapeutic Activity Treatment Bed Mobility Ability Minimum Assist Therapeutic Activity Comments Min assist from supine to sit and sit to supine. SPO2 does decreased to 85 percent but quickly rises to 89 percent with breathing techniques. Sit to stand with SBA at RW. Declines to go to chair, or ambulation due to fatigue, and being up to bathroom all morning. Total Physical Therapy Time Total Therapy Minutes 23 Total Physical Therapy Units 2 Summary Daily Note Summary RX limited due to fatigue this date from being up and down to bathroom all morning, but patient is motivated to participate and complete exercise program. Overall is improving, and SPO2 levels are maintaining on 3 LO2 with activity.
--- NOTE | 2023-02-13 13:01 | PC.NURSE ---
robertson catheter removed at thi time as ordered
[2023-02-13] MEDS: FUROSEMIDE 40 MG TABLET PO (13:45)
[2023-02-13] MEDS: REMDESIVIR 100 MG in 0.9 % SODIUM CHLORIDE 100 ML 200 MG IV (16:59)
[2023-02-13] MEDS: ACETAMINOPHEN 500 MG TABLET 1000 MG PO (21:32)
[2023-02-14] VITALS (20 sets, daily range): BP systolic 149–169; BP diastolic 74–89; PULSE 70–103; RESP 18–22; TEMP 36.3–36.7; O2SAT 87–94; BMI 38.4
[2023-02-14] MEDS: CLINDAMYCIN PHOSPHATE/D5W 600 MG/50 ML PIGGYBACK 100 MG IV ×2 (01:47→06:03)
[2023-02-14] MEDS: DEXAMETHASONE SOD PHOS 20 MG/5 ML VIAL 4 MG IV ×4 (01:48→21:07)
[2023-02-14] MEDS: BENZONATATE 100 MG CAPSULE 200 MG PO ×3 (01:48→17:09)
[2023-02-14] MEDS: IPRATROPIUM/ALBUTEROL SULFATE 3 ML AMPUL.NEB IH ×4 (04:26→20:43)
[2023-02-14 04:45] LABS: Hematocrit 37.5 % (36.0-48.0); Hemoglobin 12.6 g/dL (12.0-16.0); Mean Corpuscular HGB Conc 33.6 g/dL (29.9-35.2); Mean Corpuscular Hemoglobin 33.2 pg (26.7-34.0); Mean Corpuscular Volume 98.7 fL (81.0-99.0); Mean Platelet Volume 10.1 fL (9.5-13.5); Platelet Count 196 10^3/uL (150-450); Red Cell Distribution Width 12.8 % (11.0-15.0); White Blood Count 11.4 10^3/uL (4.0-11.0)
[2023-02-14 05:07] LABS: Alanine Aminotransferase 34 U/L (14-59); Albumin Globulin Ratio 0.7; Albumin Level 2.6 g/dL (3.4-5.0); Alkaline Phosphatase 60 U/L (46-116); Anion Gap 15.8; Aspartate Amino Transferase 23 U/L (15-37); BUN Creatinine Ratio 33.6; Bilirubin Total 0.5 mg/dL (0.2-1.0); Calcium 8.3 mg/dL (8.5-10.1); Carbon Dioxide 26.6 mmol/L (21.0-32.0); Chloride 102 mmol/L (98-107); Estimated GFR (African America 28 (>=60); Estimated GFR (Non-African Ame 23 (>=60); Globulin 3.7 g/dL; Glucose 138 mg/dL (74-106); Magnesium 2.1 mg/dL (1.8-2.4); Potassium 4.4 mmol/L (3.5-5.1); Sodium 140 mmol/L (136-145); Total Protein 6.3 g/dL (6.4-8.2)
[2023-02-14 05:21] LABS: Band Neutrophils Absolute 0.7 10^3/uL (0.0-0.3); Lymphocytes Absolute Manual 0.79 10^3/uL (1.20-3.80); Metamyelocytes Absolute Manual 0.22; Monocytes Absolute Manual 0.45 10^3/uL (0.30-0.80); Segmented Neut Absolute Manual 9.23 10^3/uL (1.4-6.5)
[2023-02-14] MEDS: OMEPRAZOLE 40 MG CAPSULE.DR PO (06:02)
[2023-02-14] MEDS: CARVEDILOL 25 MG TABLET PO ×3 (06:02→22:53)
[2023-02-14] MEDS: PIPERACILLIN SODIUM/TAZOBACTAM 3.375 GM in 0.9 % SODIUM CHLORIDE 50 ML IV (06:43)
[2023-02-14] MEDS: POTASSIUM CHLORIDE 10 MEQ ER TABLET 20 MEQ PO (09:06)
[2023-02-14] MEDS: AMLODIPINE BESYLATE 5 MG TABLET PO (09:07)
[2023-02-14] MEDS: PROSTAT 15 GM PROTEIN/100 CAL 30 ML LIQUID PACKET PO (09:07)
[2023-02-14] MEDS: FUROSEMIDE 40 MG TABLET PO (09:07)
[2023-02-14] MEDS: CETIRIZINE HCL 10 MG TABLET 20 MG PO (09:07)
[2023-02-14] MEDS: BUPROPION HCL 150 MG SR TABLET 12H PO ×2 (09:07→21:19)
[2023-02-14] MEDS: MAGNESIUM OXIDE 400 MG TABLET PO ×2 (09:07→21:19)
--- NOTE | 2023-02-14 09:49 | CA_ITS ---
Patient: CELIA DALE Exam Date: 02/14/2023 : 1955 Gender:F Ordering : DR MIRNA PADILLA . Admission #: [id number] Family : BEATRIZ BETTS Order #: [id number] CLICK HERE TO VIEW EXAM ECHOCARDIOGRAM REPORTs PROCEDURE: CA ECHO LIMITED INDICATIONS: Congestive heart failure, Covid+, COPD, hypertension, diabetes, Mantle cell lymphoma COMPARISON: None. DESCRIPTION: Limited ECHOCARDIOGRAM Real-time transthoracic echocardiography with 2D and M-mode performed. QUALITY: Technical quality was adequate. Limited echocardiogram per physician order. LEFT VENTRICLE: Normal chamber size. Normal left ventricular wall thickness. LV EF: Global left ventricular systolic function is hyperdynamic; visually estimated ejection fraction is 65 to 70%. No wall motion abnormalities. LEFT ATRIUM: Normal chamber size. RIGHT ATRIUM: Normal chamber size. RIGHT VENTRICLE: Normal chamber size. TRICUSPID VALVE: Normal mobility and thickness. MITRAL VALVE: Normal mobility and thickness. There is no mitral annular calcification. AORTIC VALVE: Normal trileaflet appearance. No visible sclerosis. Normal leaflet mobility. AORTIC ROOT: Normal diameter and appearance. PULMONIC VALVE: Not well visualized. PERICARDIUM: Anterior free space; trivial effusion versus fat pad. IVC: Collapses with inspirations. CONCLUSION: Global left ventricular systolic function is hyperdynamic; visually estimated ejection fraction is 65 to 70%. No wall motion abnormalities. Anterior free space; trivial effusion versus fat pad. A limited echocardiogram was performed. Adult Echocardiography Procedure Report Left Ventricle LVEDD (3.7 - 5.6 cm): 4.26 cm LVESD (2.2 - 4.0 cm): 2.43 cm LVIVS thickness (0.6 - 1.2 cm): 0.84 cm LVPW thickness (0.5 - 1.0 cm): 1.04 cm e': E - e': LVOT Max Gradient: LVOT Area (cm2): Peak Velocity (LVOT): Mean Velocity (LVOT): LVOT Diameter 1.90 cm Left Ventricular Ejection Fraction: Left Atrium LA Volume Index (2D A2C): Left Atrium Systolic Dimension: 2.79 cm Mitral Valve MV E to A Ratio: MV Max Gradient: MV Mean Gradient: Mitral Valve A-Wave Peak Velocity: Mitral Valve E-Wave Peak Velocity: Cardiovascular Orifice Area: Right Ventricle RV Internal Diastolic Dimension: Aorta AO Root Diam: 3.13 cm Ascending Ao Diam: Aortic Valve AoV Area (Peak Ihsan): AoV Area (VTI): Deceleration Callahan: Pressure Half-Time: Peak Velocity(Antegrade Flow): Peak Gradient(Antegrade Flow): Mean Velocity(Antegrade Flow): Mean Gradient(Antegrade Flow): Velocity Time Integral: Tricuspid Valve Peak Velocity (Regurgitant Flow): Peak Velocity: Pulmonic Valve Mean Gradient: Mean Velocity: Peak Velocity: Peak Gradient: Right Atrium Right Atrium Systolic Pressure: Dictated by: Andrzej Huggins M.D. on 02/14/2023 at 16:00 Approved by: Andrzej Huggins M.D. on 02/14/2023 at 16:03
[2023-02-14] MEDS: CEFTRIAXONE 1,000 MG in 0.9 % SODIUM CHLORIDE 50 ML 100 MG IV (09:57)
--- NOTE | 2023-02-14 10:42 | CM.NOTE ---
Rounds made with Dr. Hercules, no discharge today. Pt plans on discharging to home with Amarjit . Pt is on RA at this time, successful in weaning off oxygen.
--- NOTE | 2023-02-14 10:47 | CM.NOTE ---
Important Message From Medicare discussed with pt, pt verbalizes understanding and signs paper. Original given to pt and copy placed on pt's chart.
--- NOTE | 2023-02-14 10:51 | PT.DAILY ---
Physical Therapy Daily Note PT Daily Note/Assess Start: 02/12/23 11:09 Freq: Status: Active Protocol: Document 02/14/23 10:44 BOB (Rec: 02/14/23 10:51 BOB [id number]) Physical Therapy Daily Note/Assessment Time In/Time Out Time In 10:00 Time Out 10:15 Pain In Pain N/A Pain Out Pain N/A Subjective Subjective Pt using restroom upon arrival . Agrees to PT. Nursing present throughout session as well. Therapeutic Exercise Time Therapeutic Exercise Minutes (minutes) 3 Therapeutic Exercise Units 0 Therapeutic Exercise Treatment Therapeutic Exercise Treatment Seated ex complete while sitting EOB unsupported - no LOB. Therapeutic Activity Time Therapeutic Activity Minutes (minutes) 8 Therapeutic Activity Units 1 Therapeutic Activity Treatment Bed Mobility Ability Standby Assistance Chair Transfer Ability Standby Assistance Therapeutic Activity Comments Pt sit>stand from toilet using grab bar SBA. Pt stands at RW while pericare is performs and brief is pulled up. Pt amb 30' in room with RW. Sits EOB to check pulse Ox - 86% initially but quickly increases to 88%. Sits EOB complete seated ex. Sit>supine SBA with increased time to complete. Remains supine upon completion with call light in reach and needs met. Total Physical Therapy Time Total Therapy Minutes 11 Total Physical Therapy Units 1 Summary Daily Note Summary SPO2 does drop with activity but is able to quickly recover with rest. Steady using RW with gait. Minimal fatigue upon completion.
--- NOTE | 2023-02-14 11:58 | P.PN_ITS ---
Patient seen and examined, agree with assessment and plan below. Improving with treatment. Weaned off oxygen and normal SpO2 on room air. Echo showed normal EF 65-70%. Patient had fluid overload and did not have CHF. Diagnosis: 1. Covid-19 2. Acute hypoxic respiratory failure 3. Fluid overload 4. SIRS 5. Hypokalemia 6. HTN Progress Note: Subjective Subjective Interval history: Date/time of exam: 02/14/23 0945 The patient is resting comfortably in bed. She is mildly short of breath having just returned to the bed from the bathroom. Otherwise, she states that her respiratory status has improved moderately since admission. She denies CP, N/V. She is currently on room air with O2 sats between 88 and 92% generally above 90% while at rest. She continues to suffer with persistent diarrhea. C-diff toxin negative. Suspect SE of ABX therapy. Deescalate ABX today as pt is clin ically improving. D/C clindamycin and Zosyn. Start Rocephin daily. Add loperamide PRN and schedule Floranex. Exam Constitutional Vital Signs, click to edit/add: Last Vital Signs Temp 97.4 F L 02/14/23 06:00 Pulse 98 H 02/14/23 09:55 Resp 20 02/14/23 06:00 BP 149/74 H 02/14/23 06:00 Pulse Ox 91 L 02/14/23 11:12 O2 Del Method Room Air 02/14/23 11:12 O2 Flow Rate 1 02/14/23 07:20 FiO2 50 02/11/23 07:26 Common normals: no apparent distress, oriented x3 and alert General appearance: cooperative Orientation/consciousness: Yes awake [facility] Common normals: normocephalic, head/scalp atraumatic and hearing grossly normal bilaterally Head and scalp: normocephalic and atraumatic Eye Common normals: PERRL, EOMs intact bilaterally, conjunctivae normal and no scleral icterus General eye: normal appearance of both eyes Conjunctiva: conjunctiva(e) normal Pupil: PERRL Neck & C-Spine Common normals: no JVD Chest Common normals: inspection of chest normal Chest: symmetrical chest wall rise Respiratory Common normals: no use of accessory muscles and clear to auscultation bilaterally; abnormal respiratory effort (Mild dyspnea/tachypnea after activity) Effort & inspection: able to speak in complete sentences Cardio Common normals: no JVD, regular rate, regular rhythm, S1 normal heart sound, S2 normal heart sound, no gallops, no clicks, no murmurs, no rub and peripheral pulses 2+ throughout GI Common normals: Normal to inspection, nondistended, normoactive bowel sounds pre sent, soft to palpation, non-tender and no hepatosplenomegaly Palpation: soft and no hepatosplenomegaly Bladder/kidney exam: bladder normal to palpation Bimanual exam- vagina & uterus: bladder normal to palpation Extremity Common normals: normal to inspection and no calf tenderness General: no clubbing, no cyanosis and no edema Neuro Common normals: oriented x3, CN's II-XII intact bilaterally, moves all extremities, no focal motor deficits and no sensory deficits noted Sensorium/orientation: awake and alert Psych Common normals: mental status grossly normal Progress Note: Objective Labs Labs: Short CBC 02/14/23 Range/Units 04:33 WBC 11.4 H (4.0-11.0) 10^3/uL Hgb 12.6 (12.0-16.0) g/dL Hct 37.5 (36.0-48.0) % Plt Count 196 (150-450) 10^3/uL BMP 02/14/23 04:33 Sodium 140 Potassium 4.4 Chloride 102 Carbon Dioxide 26.6 BUN 73.0 H Creatinine 2.17 H Glucose 138 H Calcium 8.3 L Liver Function 02/14/23 Range/Units 04:33 Total Bilirubin 0.5 (0.2-1.0) mg/dL AST 23 (15-37) U/L ALT 34 (14-59) U/L Alkaline Phosphatase 60 (46-116) U/L Albumin 2.6 L (3.4-5.0) g/dL Progress Note: A&P Assessment and Plan (1) Acute respiratory failure with hypoxia: Assessment and Plan: ACUTE * Resolving - Pt satting 88-92% on RA today. * Only drops below 90% w/ activity and recovers relatively quickly * Multifactorial - Acute COVID 19 infection, CHF, suspected underlying COPD (remote tobacco abuse hx) * O2 supplementation as needed to keep sats betwen 88-92% * Sputum culture only growing yeast and we suspect oropharyngeal contaminant (2) COVID-19: Assessment and Plan: ACUTE * Improving * Continue Remdesivir - Day 5/5, then d/c * Secondary bacterial pneumonia suspected - continue ABX, descalate to IVPB Rocephin alone * See respiratory failure (3) Congestive heart failure: Assessment and Plan: ACUTE * Suspected - CHF vs fluid overload * Obtain limited 2D Echo today to assess for HFrEF vs HFpEF vs fluid overload * BNP WNL today and hypoxia resolving * Give Lasix 40 PO today, then resume usual home dose of 20 mg/day tomorrow * Daily weights, strict I&O (4) SIRS (systemic inflammatory response syndrome): Assessment and Plan: ACUTE * Resolved * 2/2 acute COVID 19 infection w/ suspected secondary bacterial pneumonia * Leukocytosis, tachycardia, tachypnea, respiratory failure resolved * Suspect renal function reflects baseline but we do not currently have access to historical labs * CBC in AM (5) Diarrhea: Assessment and Plan: ACUTE * C-diff ruled out * Suspect adverse SE of double antibiotic coverage especially w/ clinidamycin * Sputum culture only growing yeast - d/c additional gram pos coverage and deescalate ABX from Zosyn to Rocephin * Add loperamide PRN and scheduled floranex (6) Hypokalemia: Assessment and Plan: ACUTE * 2/2 diuretic administration * Resolved on AM labs * Reduce scheduled KCL supplementation to 20 mEq daily * CMP in AM to monitor (7) Hypertension: Assessment and Plan: CHRONIC * Continue home Coreg and amlodipine
--- NOTE | 2023-02-14 13:14 | SWNOTE1 ---
SW spoke with pt to see how she was feeling, pt voiced she just got up from chair and is back in bed. Pt voiced she is feeling well. SW asked if she has been up with therapy, she voiced yes she has. SW asked if she was still thinking home with home health or if she wanted to go SNF. She stated she is going home with home health. She stated her son does not want her in a long term and he bought her a shower chair and a nice recliner. Pt did inquire about a walker. SW to speak with doctor about a walker. SW to also call daughter about discharge plan as well.
--- NOTE | 2023-02-14 13:24 | SWNOTE1 ---
SW did speak with pt's daughter on phone and she is alright with pt returning home with HH as long as pt is ambulating. SW did review therapy notes with pt's daughter and spoke with nurse. Pt's daughter did mention walker, SW to reach out to doctor in regards to walker.
[2023-02-14] MEDS: LOPERAMIDE HCL 2 MG CAPSULE 4 MG PO (13:29)
--- NOTE | 2023-02-14 13:41 | SWNOTE1 ---
FIORDALIZA sent updates to Amarjit LOMAX
[2023-02-14] MEDS: REMDESIVIR 100 MG in 0.9 % SODIUM CHLORIDE 100 ML 200 MG IV (17:09)
[2023-02-14] MEDS: 0.9 % SODIUM CHLORIDE 250 ML 10 ML IV (17:09)
[2023-02-14] MEDS: L. ACIDOPHILUS/L.BULGARICUS 1 PACKET GRAN.PACK PO (21:19)
[2023-02-15] VITALS (11 sets, daily range): BP systolic 156; BP diastolic 84; PULSE 81–94; RESP 20; TEMP 36.7; O2SAT 89–94
[2023-02-15] MEDS: BENZONATATE 100 MG CAPSULE 200 MG PO ×2 (02:16→10:58)
[2023-02-15] MEDS: DEXAMETHASONE SOD PHOS 20 MG/5 ML VIAL 4 MG IV ×2 (02:16→10:58)
[2023-02-15 04:53] LABS: Hematocrit 39.8 % (36.0-48.0); Hemoglobin 13.1 g/dL (12.0-16.0); Mean Corpuscular HGB Conc 32.9 g/dL (29.9-35.2); Mean Corpuscular Hemoglobin 32.4 pg (26.7-34.0); Mean Corpuscular Volume 98.5 fL (81.0-99.0); Mean Platelet Volume 10.5 fL (9.5-13.5); Platelet Count 219 10^3/uL (150-450); Red Blood Count 4.04 10^6/uL (4.20-5.40); Red Cell Distribution Width 12.9 % (11.0-15.0); White Blood Count 14.8 10^3/uL (4.0-11.0)
[2023-02-15] MEDS: IPRATROPIUM/ALBUTEROL SULFATE 3 ML AMPUL.NEB IH ×2 (05:04→10:28)
[2023-02-15 05:22] LABS: Alanine Aminotransferase 30 U/L (14-59); Albumin Globulin Ratio 0.7; Albumin Level 2.8 g/dL (3.4-5.0); Alkaline Phosphatase 63 U/L (46-116); Anion Gap 15.2; Aspartate Amino Transferase 18 U/L (15-37); BUN Creatinine Ratio 35.1; Bilirubin Total 0.4 mg/dL (0.2-1.0); Calcium 8.5 mg/dL (8.5-10.1); Carbon Dioxide 26.1 mmol/L (21.0-32.0); Chloride 101 mmol/L (98-107); Estimated GFR (African America 29 (>=60); Estimated GFR (Non-African Ame 24 (>=60); Globulin 3.8 g/dL; Glucose 138 mg/dL (74-106); Magnesium 2.2 mg/dL (1.8-2.4); Potassium 4.3 mmol/L (3.5-5.1); Sodium 138 mmol/L (136-145); Total Protein 6.6 g/dL (6.4-8.2)
[2023-02-15 05:33] LABS: Band Neutrophils Absolute 0.1 10^3/uL (0.0-0.3); Lymphocytes Absolute Manual 0.74 10^3/uL (1.20-3.80); Monocytes Absolute Manual 0.59 10^3/uL (0.30-0.80); Myelocytes Absolute Manual 0.14; Segmented Neut Absolute Manual 13.17 10^3/uL (1.4-6.5)
[2023-02-15 05:34] LABS: Anisocytosis 1+; Poikilocytosis 1+
[2023-02-15 05:36] LABS: Hypochromasia 2+
[2023-02-15] MEDS: CARVEDILOL 25 MG TABLET PO (06:30)
[2023-02-15] MEDS: OMEPRAZOLE 40 MG CAPSULE.DR PO (06:30)
--- NOTE | 2023-02-15 10:20 | PT.DAILY ---
Physical Therapy Daily Note PT Daily Note/Assess Start: 02/12/23 11:09 Freq: Status: Active Protocol: Document 02/15/23 10:18 BOB (Rec: 02/15/23 10:20 BOB [id number]) Physical Therapy Daily Note/Assessment Time In/Time Out Time In 10:05 Time Out 10:08 Subjective Subjective Pt sitting in BS chair upon arrival. Nursing reports pt is ready to get back to bed. Pt agrees to get back to bed but declines any amb or ther ex at this time as she wishes to rest before being DC home this afternoon. Therapeutic Activity Time Therapeutic Activity Minutes (minutes) 3 Therapeutic Activity Units 0 Therapeutic Activity Treatment Bed Mobility Ability Standby Assistance Chair Transfer Ability Standby Assistance Therapeutic Activity Comments Pt sit>stand to RW SBA. AMb 5' to bed with RW SBA. Pt able to transfer SBA with min increased time needed. remains supine upon completion with hospitalist present. Total Physical Therapy Time Total Therapy Minutes 3 Total Physical Therapy Units 0 Summary Daily Note Summary SBA for all transfers today. Planned dc to home with HH around 1230.
--- NOTE | 2023-02-15 10:23 | CM.NOTE ---
Rounds made with pankaj Oneil for discharge to home today with Amarjit HAQUE.
[2023-02-15] MEDS: CETIRIZINE HCL 10 MG TABLET 20 MG PO (10:56)
[2023-02-15] MEDS: CEFTRIAXONE 1,000 MG in 0.9 % SODIUM CHLORIDE 50 ML 100 MG IV (10:56)
[2023-02-15] MEDS: L. ACIDOPHILUS/L.BULGARICUS 1 PACKET GRAN.PACK PO (10:56)
[2023-02-15] MEDS: PROSTAT 15 GM PROTEIN/100 CAL 30 ML LIQUID PACKET PO (10:56)
[2023-02-15] MEDS: MAGNESIUM OXIDE 400 MG TABLET PO (10:57)
[2023-02-15] MEDS: BUPROPION HCL 150 MG SR TABLET 12H PO (10:57)
[2023-02-15] MEDS: POTASSIUM CHLORIDE 10 MEQ ER TABLET 20 MEQ PO (10:57)
[2023-02-15] MEDS: AMLODIPINE BESYLATE 5 MG TABLET PO (10:57)
[2023-02-15] MEDS: FUROSEMIDE 20 MG TABLET PO (10:57)
--- NOTE | 2023-02-15 11:21 | P.DS_ITS ---
Patient seen and examined, agree with assessment and plan below. Improved with treatment. Weaned off oxygen and normal SpO2 on room air. Discharged home and complete medication as directed. Diagnosis: 1. Covid-19 2. Acute hypoxic respiratory failure 3. Fluid overload 4. SIRS 5. Hypokalemia 6. HTN 7. CKD IV DS: Providers Provider Date of admission: 02/10/23 17:12 Primary care physician: Non-Staff Physician, Consults: 02/10/23 Consult to Dietitian Routine Reason For Exam: weight loss Reason for consultation: Diarrhea, recent hospitalization Has provider been notified: Yes 02/10/23 17:49 Occupational Therapy Eval and Treat Routine Reason for consultation: if needed for rehab Has provider been notified: No Physical Therapy Eval and Treat Routine Reason for consultation: strength Has provider been notified: No Discharging clinician: Leena Meyer DS: Diagnosis Discharge Diagnosis (1) Acute respiratory failure with hypoxia: (2) COVID-19: (3) Congestive heart failure: Qualifiers: Heart failure chronicity: acute on chronic Heart failure type: unspecified Qualified Code(s): I50.9 - Heart failure, unspecified (4) SIRS (systemic inflammatory response syndrome): (5) Diarrhea: Qualifiers: Diarrhea type: functional diarrhea Qualified Code(s): K59.1 - Functional diarrhea (6) Hypokalemia: (7) Hypertension: DS: Summary Hospital Course Hospital Course: The patient was admitted with acute COVID-19 infection, CHF exacerbation, and SIRS. She had just been discharged from another hospital facility for similar symptoms but was not COVID-19 tested during that admission. She initially required high flow O2 supplementation. She was initiated on remdesivir, broad- spectrum antibiotics for suspected secondary gram-negative pneumonia, and high- dose steroids in setting of underlying COPD. She was able to be weaned off of O2 supplementation, and antibiotic therapy was de-escalated. She has completed her course of remdesivir and a 5-day course of antibiotic treatment which is deemed sufficient. She developed diarrhea during her stay but infectious sources including C. difficile ruled out. She was treated with loperamide and probiotics and her diarrhea has resolved. As she is now on room air and feels she is at or near her baseline, she is being discharged home in stable condition with home health services for further rehab strengthening after two hospitalizations and close nursing monitoring of her respiratory status. She should follow-up with her PCP within 1 week. She had been prescribed prednisone taper from her previous admission and she is instructed to complete that taper after discharge. Time Spent with Patient Time attestation: Total time spent providing and/or coordinating discharge services: Time spent: greater than 30 minutes Specific discharge activities: Physical exam, discussion of discharge plan, questions answered. Exam Constitutional Vital Signs, click to edit/add: Last Vital Signs Temp 98.1 F 02/15/23 06:00 Pulse 89 02/15/23 09:57 Resp 20 02/15/23 06:00 BP 156/84 H 02/15/23 06:00 Pulse Ox 94 L 02/15/23 10:29 O2 Del Method Room Air 02/15/23 10:29 O2 Flow Rate 1 02/14/23 07:20 FiO2 50 02/11/23 07:26 Common normals: no apparent distress, oriented x3 and alert General appearance: cooperative Orientation/consciousness: Yes awake HENMT Common normals: normocephalic and head/scalp atraumatic Head and scalp: normocephalic and atraumatic Eye Common normals: PERRL, EOMs intact bilaterally, conjunctivae normal and no scleral icterus Conjunctiva: conjunctiva(e) normal Pupil: PERRL Neck & C-Spine Common normals: no JVD Respiratory Common normals: normal respiratory effort and no use of accessory muscles Effort & inspection: able to speak in complete sentences and symmetric chest movement Auscultation: wheezes (Faint, EE RLL) Cardio Common normals: no JVD, regular rate, regular rhythm, S1 normal heart sound, S2 normal heart sound, no gallops, no clicks, no murmurs, no rub and peripheral pulses 2+ throughout GI Common normals: Normal to inspection, nondistended, normoactive bowel sounds present, soft to palpation and non-tender Palpation: soft Bladder/kidney exam: bladder normal to palpation Extremity Common normals: normal to inspection, full ROM, normal capillary refill and no pedal edema General: no clubbing and no cyanosis Neuro Common normals: oriented x3, CN's II-XII intact bilaterally, moves all extremiti es, no focal motor deficits and no sensory deficits noted Sensorium/orientation: awake and alert Speech: speech normal Psych Common normals: mental status grossly normal and activity/motor behavior normal Appearance: grossly normal DS: Data Data Completed and Pending Labs on day of discharge: Labs from last 24 hours 02/15/23 04:41 WBC 14.8 H RBC 4.04 L Hgb 13.1 Hct 39.8 MCV 98.5 MCH 32.4 MCHC 32.9 RDW 12.9 Plt Count 219 MPV 10.5 Seg Neuts % (Manual) 89.0 Band Neutrophils % 1.0 Lymphocytes % (Manual) 5.0 L Monocytes % (Manual) 4.0 Eosinophils % (Manual) 0.0 L Basophils % (Manual) 0.0 L Myelocytes % 1.0 Neutrophils # (Manual) 13.17 H Band Neutrophils # 0.1 Lymphocytes # (Manual) 0.74 L Monocytes # (Manual) 0.59 Eosinophils # (Manual) 0.00 Basophils # (Manual) 0.00 Myelocytes # 0.14 Hypochromasia 2+ Poikilocytosis 1+ Anisocytosis 1+ Sodium 138 Potassium 4.3 Chloride 101 Carbon Dioxide 26.1 Anion Gap 15.2 BUN 73.0 H Creatinine 2.08 H Est GFR ( Amer) 29 L Est GFR (Non-Af Amer) 24 L BUN/Creatinine Ratio 35.1 Glucose 138 H Calcium 8.5 Magnesium 2.2 Total Bilirubin 0.4 AST 18 ALT 30 Alkaline Phosphatase 63 NT-Pro-B Natriuret Pep 698.0 Total Protein 6.6 Albumin 2.8 L Globulin 3.8 Albumin/Globulin Ratio 0.7 Preliminary micro results at discharge 02/10/23 15:20 - Preliminary Blood NO GROWTH AT 36-48 HOURS. FINAL TO FOLLOW. 02/10/23 15:20 Blood Culture Result 1 - Preliminary Blood NO GROWTH AT 36-48 HOURS. FINAL TO FOLLOW. Imaging Chest x-ray: Attestation: I have reviewed the pertinent imaging results. Radiologist's impression: 02/10/23 FINDINGS: The heart is enlarged. There is pulmonary venous congestion. Diffuse increased interstitial markings. Osseous structures are intact. Discharge Plan Discharge Disposition: Home Health Service Condition: Fair Discharge Medications: Continued atorvastatin 40 mg tablet 40 mg PO QPM bupropion HCl 150 mg tablet sustained-release 12 hr 150 mg PO Q12H Rx Instructions: SR BID carvedilol 25 mg tablet 25 mg PO Q12H prednisone 10 mg tablet 10 mg PO .TAPER amlodipine 5 mg tablet 5 mg PO .QD benzonatate 100 mg capsule 100 mg PO TID PRN (Reason: cough) pantoprazole 40 mg tablet,delayed release (DR/EC) 40 mg PO .ACB furosemide 20 mg tablet 20 mg PO .QD albuterol sulfate 90 mcg/actuation HFA aerosol inhaler 2 puff INHALATION Q6H PRN (Reason: shortness of breath or wheezing) Patient Instructions: COVID-19 (Coronavirus Disease 2019) (DC) Activity Restrictions/Additional Instructions: - Consider repeat BMP in 1-2 weeks - monitor renal fx and potassium level - Follow up w/ PCP within 1 week Engagement Quality Consultant/Cane Splicer Instructions: Discharge with [facility], phone number is [phone]. Forms: Portal Instructions
--- NOTE | 2023-02-15 11:32 | SWNOTE1 ---
FIORDALIZA stopped in to see if pt has preference on where walker is from, pt stated her son went out and bought her one. FIORDALIZA let doctor know. FIORDALIZA to send dc orders to [facility] once pt is discharged.
--- NOTE | 2023-02-15 13:00 | SWNOTE1 ---
Discharge orders sent to [facility].
--- NOTE | 2023-02-16 14:27 | CM.DCFOLLOWU ---
Person spoke with: Janey How are you feeling? She is feeling better How is your pain? No pain Did you understand your discharge instructions? Yes Do you have any questions about your discharge instructions? No Were you given any prescriptions at discharge? No Were you able to get your prescriptions filled? N/A Do you understand how to take your medications as ordered? yes Do you have any questions about your follow up appointment and do you plan to keep your follow up appointment? I am calling to schedule Is there anything else that you would like to discuss? No Questions/Comments/Concerns/Other:
== END 2023-02-15 14:00 | disposition home health service (06) | DRG 871 ==
LOC: ER 17:36 → MS 17:42
PROVIDERS: Family Medicine; Physician Assistant; Admitting Provider Family Medicine; Emergency Provider Emergency Medicine; Visit Provider Nurse Practitioner
DX: A41.89 Other specified sepsis (principal); J12.82 Pneumonia due to coronavirus disease 2019; U07.1 COVID-19; J96.01 Acute respiratory failure with hypoxia; E87.1 Hypo-osmolality and hyponatremia; I12.9 Hypertensive chronic kidney disease with stage 1 through stage 4 chronic kidney disease, or unspecified chronic kidney disease; N18.4 Chronic kidney disease, stage 4 (severe); C83.10 Mantle cell lymphoma, unspecified site; J44.0 Chronic obstructive pulmonary disease with (acute) lower respiratory infection; R65.20 Severe sepsis without septic shock; E87.70 Fluid overload, unspecified; K21.9 Gastro-esophageal reflux disease without esophagitis; E66.01 Morbid (severe) obesity due to excess calories; R73.9 Hyperglycemia, unspecified; E87.6 Hypokalemia; E83.42 Hypomagnesemia; D50.9 Iron deficiency anemia, unspecified; E78.00 Pure hypercholesterolemia, unspecified; K59.1 Functional diarrhea; F32.A Depression, unspecified; Z68.36 Body mass index [BMI] 36.0-36.9, adult; Z79.899 Other long term (current) drug therapy; Z87.891 Personal history of nicotine dependence; Z88.5 Allergy status to narcotic agent
CPT/HCPCS: 36415; 51702; 71045; 80053; 81001; 82800; 83605; 83735; 83880; 84145; 84436; 84443; 84484; 85027; 85610; 85730; 87040; 87070; 87106; 87205; 87493; 87507; 87811; 93005; 93308; 94640; 94667; 94668; 94761; 94799; 96365; 96366; 96367; 96368; 96375; 96376; 97110; 97161; 97165; 97530; 97535; 99285; J0248